=== PATIENT | female | born 1980 | race Caucasian/White ===

== ENCOUNTER 2024-07-13 14:57 | Outpatient (REF) | payer MEDICAID, OTHER, SELFPAY ==
[2024-07-13 16:40] LABS: HCG Quantitative 5180 mIU/mL
== END 2024-07-13 14:58 | disposition home or self-care (01) ==
LOC: HO.HHCL 14:57
PROVIDERS: Visit Provider Nurse Practitioner Primary Care
DX: Z32.01 Encounter for pregnancy test, result positive (principal)
CPT/HCPCS: 36415; 84702